=== PATIENT | male | born 1955 | race Caucasian/White ===

== ENCOUNTER 2018-08-10 15:38 | Inpatient (IN) | payer BC ==
[~2018-08-10] VITALS: Ht 190.5 cm; Wt 79.0 kg
[2018-08-10 15:53] VITALS: Ht 190.5 cm; Wt 79.0 kg
[2018-08-10 18:13] LABS: BASOPHIL % 0.3 % (0-2); PLATELET COUNT 148 x10^3mcL (130-400); RED CELL DISTRIBUTION WIDTH 13.2 % (11.5-14.5)
[2018-08-10 18:22] LABS: CALCIUM 8.7 mg/dL (8.5-10.1); CARBON DIOXIDE 27.2 mmol/L (21-32); CHLORIDE SERUM 107 mmol/L (98-107); GFR1 > 60 mL/min; GLUCOSE SERUM 85 mg/dL (74-106); POTASSIUM SERUM 4.1 mmol/L (3.5-5.1); SODIUM SERUM 142 mmol/L (136-145)
[2018-08-10 18:27] LABS: ALBUMIN 3.7 g/dL (3.4-5.0); ALKALINE PHOSPHATASE 79 U/L (46-116); ALT/SGPT 46 U/L (16-63); AST/SGOT 17 U/L (15-37); BILIRUBIN TOTAL 0.6 mg/dL (0.20-1.00); TOTAL PROTEIN, SERUM 6.8 g/dL (6.4-8.2)
[2018-08-10] MEDS ORDERED: QUETIAPINE FUMA25 M1 PO (19:15)
[2018-08-10] MEDS ORDERED: SIN25100 PO (19:17)
[2018-08-10] MEDS ORDERED: TRAZODONE150 M1 PO (19:17)
[2018-08-10] MEDS ORDERED: EXELON4.6 MG/21 (19:18)
[2018-08-10 19:35] LABS: CHOLESTEROL/HDL RATIO 3.5; MAGNESIUM 2.2 mg/dL (1.8-2.4); PHOSPHOROUS 3.1 mg/dL (2.5-4.9)
[2018-08-10 19:41] LABS: T3 TOTAL 1.02 ng/mL
[2018-08-10 19:44] LABS: FREE T4 0.78 ng/dL (0.76-1.46)
[2018-08-10 19:49] LABS: FREE THYROXINE INDEX 1.4 ug/dL (1.4-4.5); T4(THYROXINE) 4.1 ug/dL (4.7-13.3)
[2018-08-10 21:26] VITALS: BP 147/84
[2018-08-11 05:59] VITALS: BP 106/69
[2018-08-11 06:16] LABS: BASOPHIL % 0.3 % (0-2); PLATELET COUNT 152 x10^3mcL (130-400); RED CELL DISTRIBUTION WIDTH 12.8 % (11.5-14.5)
[2018-08-11 06:21] LABS: CALCIUM 8.1 mg/dL (8.5-10.1); CARBON DIOXIDE 23.4 mmol/L (21-32); CHLORIDE SERUM 108 mmol/L (98-107); GFR1 > 60 mL/min; GLUCOSE SERUM 90 mg/dL (74-106); POTASSIUM SERUM 4.4 mmol/L (3.5-5.1); SODIUM SERUM 143 mmol/L (136-145)
[2018-08-11 12:13] VITALS: BP 139/96
[2018-08-11 15:52] VITALS: BP 144/79
[2018-08-11 18:56] LABS: microscopic required? YES; urine erythrocyte 3+ (NEGATIVE)
[2018-08-12 04:18] VITALS: BP 158/95
[2018-08-12 06:30] LABS: BASOPHIL % 0.4 % (0-2); PLATELET COUNT 155 x10^3mcL (130-400); RED CELL DISTRIBUTION WIDTH 12.8 % (11.5-14.5)
[2018-08-12 07:09] LABS: CALCIUM 8.7 mg/dL (8.5-10.1); CARBON DIOXIDE 25.9 mmol/L (21-32); CHLORIDE SERUM 105 mmol/L (98-107); GFR1 > 60 mL/min; GLUCOSE SERUM 97 mg/dL (74-106); PHOSPHOROUS 2.9 mg/dL (2.5-4.9); POTASSIUM SERUM 4.1 mmol/L (3.5-5.1); SODIUM SERUM 142 mmol/L (136-145)
[2018-08-12 08:04] LABS: AMPHETAMINE QUAL UR NONE DETECTED (See below)
[2018-08-12 09:40] VITALS: BP 140/89
[2018-08-12 14:09] VITALS: BP 112/69
[2018-08-12 19:14] VITALS: BP 142/83
[2018-08-13 05:31] VITALS: BP 144/78
[2018-08-13 06:10] LABS: BASOPHIL % 0.5 % (0-2); PLATELET COUNT 157 x10^3mcL (130-400); RED CELL DISTRIBUTION WIDTH 12.9 % (11.5-14.5)
[2018-08-13 07:45] LABS: CARBON DIOXIDE 24.9 mmol/L (21-32); CHLORIDE SERUM 108 mmol/L (98-107); GFR1 > 60 mL/min; GLUCOSE SERUM 109 mg/dL (74-106); MAGNESIUM 2.2 mg/dL (1.8-2.4); PHOSPHOROUS 3.3 mg/dL (2.5-4.9); POTASSIUM SERUM 4.9 mmol/L (3.5-5.1); SODIUM SERUM 145 mmol/L (136-145)
[2018-08-13 12:32] VITALS: BP 143/93
[2018-08-13 22:57] VITALS: BP 148/97
[2018-08-14 05:50] VITALS: BP 155/96
[2018-08-14 06:32] LABS: BASOPHIL % 0.4 % (0-2); PLATELET COUNT 152 x10^3mcL (130-400); RED CELL DISTRIBUTION WIDTH 12.6 % (11.5-14.5)
[2018-08-14 06:36] LABS: CALCIUM 8.3 mg/dL (8.5-10.1); CARBON DIOXIDE 26.6 mmol/L (21-32); CHLORIDE SERUM 106 mmol/L (98-107); CREATININE SERUM 0.8 mg/dL (0.7-1.3); GFR1 > 60 mL/min; GLUCOSE SERUM 101 mg/dL (74-106); MAGNESIUM 2.1 mg/dL (1.8-2.4); POTASSIUM SERUM 4.4 mmol/L (3.5-5.1); SODIUM SERUM 142 mmol/L (136-145)
[2018-08-14 09:17] VITALS: BP 142/87
[2018-08-14 13:41] VITALS: BP 114/87
[2018-08-14 18:45] VITALS: BP 143/80
[2018-08-14 21:49] VITALS: BP 153/98
[2018-08-15 06:01] VITALS: BP 134/79
[2018-08-15 06:50] LABS: CALCIUM 8.2 mg/dL (8.5-10.1); CARBON DIOXIDE 25.3 mmol/L (21-32); CHLORIDE SERUM 107 mmol/L (98-107); CREATININE SERUM 0.7 mg/dL (0.7-1.3); GFR1 > 60 mL/min; GLUCOSE SERUM 94 mg/dL (74-106); MAGNESIUM 1.9 mg/dL (1.8-2.4); PHOSPHOROUS 3.4 mg/dL (2.5-4.9); POTASSIUM SERUM 3.8 mmol/L (3.5-5.1); SODIUM SERUM 142 mmol/L (136-145)
[2018-08-15 07:07] LABS: BASOPHIL % 0.4 % (0-2); PLATELET COUNT 153 x10^3mcL (130-400); RED CELL DISTRIBUTION WIDTH 12.9 % (11.5-14.5)
[2018-08-15 09:17] VITALS: BP 144/104
[2018-08-15 13:02] VITALS: BP 147/86
[2018-08-15 21:28] VITALS: BP 150/82
[2018-08-16 05:22] VITALS: BP 155/90
[2018-08-16 06:27] LABS: BASOPHIL % 0.5 % (0-2); PLATELET COUNT 159 x10^3mcL (130-400); RED CELL DISTRIBUTION WIDTH 12.6 % (11.5-14.5)
[2018-08-16 06:39] LABS: CALCIUM 8.4 mg/dL (8.5-10.1); CHLORIDE SERUM 105 mmol/L (98-107); CREATININE SERUM 0.8 mg/dL (0.7-1.3); GFR1 > 60 mL/min; GLUCOSE SERUM 86 mg/dL (74-106); PHOSPHOROUS 3.1 mg/dL (2.5-4.9); POTASSIUM SERUM 3.7 mmol/L (3.5-5.1); SODIUM SERUM 140 mmol/L (136-145)
[2018-08-16 08:23] VITALS: BP 174/144
[2018-08-16 12:47] VITALS: BP 175/116
[2018-08-16 15:47] VITALS: BP 153/90
[2018-08-16 20:00] VITALS: BP 168/94
[2018-08-17 05:16] VITALS: BP 141/79
[2018-08-17 06:30] LABS: BASOPHIL % 0.6 % (0-2); PLATELET COUNT 193 x10^3mcL (130-400)
[2018-08-17 07:04] LABS: CALCIUM 8.6 mg/dL (8.5-10.1); CARBON DIOXIDE 23.7 mmol/L (21-32); CHLORIDE SERUM 103 mmol/L (98-107); CREATININE SERUM 0.8 mg/dL (0.7-1.3); GFR1 > 60 mL/min; GLUCOSE SERUM 92 mg/dL (74-106); POTASSIUM SERUM 4.1 mmol/L (3.5-5.1); SODIUM SERUM 141 mmol/L (136-145)
[2018-08-17 12:30] VITALS: BP 136/79
[2018-08-17 22:38] VITALS: BP 132/79
[2018-08-18 06:33] VITALS: BP 127/78
[2018-08-18 06:45] LABS: CALCIUM 8.8 mg/dL (8.5-10.1); CARBON DIOXIDE 23.1 mmol/L (21-32); CHLORIDE SERUM 102 mmol/L (98-107); CREATININE SERUM 0.7 mg/dL (0.7-1.3); GFR1 > 60 mL/min; GLUCOSE SERUM 115 mg/dL (74-106); POTASSIUM SERUM 3.8 mmol/L (3.5-5.1); SODIUM SERUM 138 mmol/L (136-145)
[2018-08-18 07:45] LABS: BASOPHIL % 0.3 % (0-2); PLATELET COUNT 160 x10^3mcL (130-400); RED CELL DISTRIBUTION WIDTH 12.8 % (11.5-14.5)
[2018-08-18 09:20] VITALS: BP 149/99
[2018-08-18 16:32] VITALS: BP 155/94
[2018-08-18 22:02] VITALS: BP 179/94
[2018-08-18 23:22] VITALS: BP 142/63
[2018-08-19 05:51] VITALS: BP 151/87
[2018-08-19 09:08] VITALS: BP 155/98
[2018-08-19 10:18] VITALS: BP 155/98
[2018-08-19 18:38] VITALS: BP 108/86
[2018-08-19 19:10] VITALS: BP 108/86
[2018-08-19 21:30] VITALS: BP 150/92
[2018-08-20 05:18] VITALS: BP 156/89
[2018-08-20 08:15] VITALS: BP 154/93
[2018-08-20 13:16] VITALS: BP 150/86
[2018-08-20 16:06] VITALS: BP 154/91
[2018-08-20 19:10] VITALS: BP 154/91
[2018-08-21] VITALS (8 sets, daily range): BP systolic 126–187; BP diastolic 86–117
[2018-08-21 06:15] LABS: CARBON DIOXIDE 26.6 mmol/L (21-32); CHLORIDE SERUM 104 mmol/L (98-107); CREATININE SERUM 0.7 mg/dL (0.7-1.3); GFR1 > 60 mL/min; GLUCOSE SERUM 101 mg/dL (74-106); POTASSIUM SERUM 3.6 mmol/L (3.5-5.1); SODIUM SERUM 140 mmol/L (136-145)
[2018-08-21 06:29] LABS: BASOPHIL % 0.8 % (0-2); PLATELET COUNT 186 x10^3mcL (130-400); RED CELL DISTRIBUTION WIDTH 13.1 % (11.5-14.5)
[2018-08-22 06:17] VITALS: BP 198/89
[2018-08-22 06:34] LABS: BASOPHIL % 0.6 % (0-2); PLATELET COUNT 212 x10^3mcL (130-400); RED CELL DISTRIBUTION WIDTH 12.8 % (11.5-14.5)
[2018-08-22 07:11] LABS: CALCIUM 9.1 mg/dL (8.5-10.1); CHLORIDE SERUM 103 mmol/L (98-107); CREATININE SERUM 0.9 mg/dL (0.7-1.3); GFR1 > 60 mL/min; GLUCOSE SERUM 94 mg/dL (74-106); POTASSIUM SERUM 3.8 mmol/L (3.5-5.1); SODIUM SERUM 140 mmol/L (136-145)
[2018-08-22 09:15] VITALS: BP 164/98
[2018-08-22 10:00] VITALS: BP 177/103
[2018-08-22 14:00] VITALS: BP 145/121
[2018-08-22 18:32] VITALS: BP 142/85
[2018-08-22 22:42] VITALS: BP 232/149
[2018-08-23 06:11] VITALS: BP 156/106
[2018-08-23 06:36] LABS: BASOPHIL % 0.8 % (0-2); PLATELET COUNT 188 x10^3mcL (130-400); RED CELL DISTRIBUTION WIDTH 12.8 % (11.5-14.5)
[2018-08-23 06:40] LABS: CALCIUM 8.7 mg/dL (8.5-10.1); CARBON DIOXIDE 26.1 mmol/L (21-32); CHLORIDE SERUM 104 mmol/L (98-107); CREATININE SERUM 0.7 mg/dL (0.7-1.3); GFR1 > 60 mL/min; GLUCOSE SERUM 97 mg/dL (74-106); POTASSIUM SERUM 3.4 mmol/L (3.5-5.1); SODIUM SERUM 141 mmol/L (136-145)
[2018-08-23 09:56] VITALS: BP 161/98
[2018-08-23 12:35] VITALS: BP 152/99
[2018-08-23 16:30] VITALS: BP 157/88
[2018-08-24 05:59] VITALS: BP 157/92
[2018-08-24 06:12] LABS: BASOPHIL % 0.5 % (0-2); PLATELET COUNT 166 x10^3mcL (130-400); RED CELL DISTRIBUTION WIDTH 12.5 % (11.5-14.5)
[2018-08-24 06:24] LABS: CALCIUM 9.2 mg/dL (8.5-10.1); CHLORIDE SERUM 107 mmol/L (98-107); CREATININE SERUM 0.9 mg/dL (0.7-1.3); GFR1 > 60 mL/min; GLUCOSE SERUM 90 mg/dL (74-106); POTASSIUM SERUM 4.2 mmol/L (3.5-5.1); SODIUM SERUM 142 mmol/L (136-145)
[2018-08-24 08:22] VITALS: BP 169/107
[2018-08-24 09:30] VITALS: BP 137/83
[2018-08-24 18:54] VITALS: BP 153/709
[2018-08-24 23:28] VITALS: BP 133/88
[2018-08-25 10:00] VITALS: BP 180/104
[2018-08-25 15:48] VITALS: BP 131/77
[2018-08-25 21:41] VITALS: BP 156/101
[2018-08-26 05:33] VITALS: BP 160/89
[2018-08-26 09:57] VITALS: BP 142/93
[2018-08-26 17:51] VITALS: BP 157/98
[2018-08-27 05:44] VITALS: BP 156/84
[2018-08-27 08:14] VITALS: BP 149/93
[2018-08-27 13:29] VITALS: BP 173/108
[2018-08-27 16:32] VITALS: BP 172/99
[2018-08-27 19:18] VITALS: BP 176/116
[2018-08-28 04:30] VITALS: BP 142/101
[2018-08-28 04:52] VITALS: BP 114/76
[2018-08-28 08:12] VITALS: BP 128/80
[2018-08-28 14:00] VITALS: BP 144/99
[2018-08-28 18:36] VITALS: BP 158/97
[2018-08-28 20:10] VITALS: BP 156/88
[2018-08-29 06:23] VITALS: BP 149/97
[2018-08-29 10:05] VITALS: BP 145/85
[2018-08-29] MEDS ORDERED: LISINOPRIL10 MG PO (10:46)
[2018-08-29] MEDS ORDERED: SEROQUEL25 MG PO ×2 (10:46)
[2018-08-29 17:44] VITALS: BP 143/85
[2018-08-29 20:40] VITALS: BP 133/101
[2018-08-30] VITALS (8 sets, daily range): BP systolic 122–185; BP diastolic 74–110
[2018-08-31 06:02] VITALS: BP 159/95
[2018-08-31 08:15] VITALS: BP 159/95
== END 2018-08-31 14:20 | DRG 56 ==
LOC: ED 15:38 → MU 18:58 → DU 18:58 → MU 20:18 → DU 08-11 10:55
PROVIDERS: Emergency Medicine; Family Medicine; ADMIT Internal Medicine
DX: G30.9 Alzheimer's disease, unspecified (principal); N17.0 Acute kidney failure with tubular necrosis; F02.81 Dementia in other diseases classified elsewhere, unspecified severity, with behavioral disturbance; G90.8 Other disorders of autonomic nervous system; G20 Parkinson's disease; F29 Unspecified psychosis not due to a substance or known physiological condition; E78.5 Hyperlipidemia, unspecified; E03.9 Hypothyroidism, unspecified; Z79.899 Other long term (current) drug therapy
CPT/HCPCS: 84439; 92526-GN; 92610; J0360; J0696; J1630; J1885; J2060; J3490; J7030